=== PATIENT | male | born 1935 | race Caucasian/White ===

== ENCOUNTER 2018-07-13 04:50 | Inpatient (IN) | payer OTHER ==
[~2018-07-13] VITALS: Ht 200.7 cm; Wt 72.6 kg
[2018-07-13] MEDS ORDERED: DALIRESP500 MCG (05:02)
[2018-07-13] MEDS ORDERED: BENICAR5 MG (05:02)
[2018-07-13] MEDS ORDERED: STIOLTO RESPIMAT4 GM (05:02)
[2018-07-13] MEDS ORDERED: FLOVENT HFA10.6 GM (05:03)
[2018-07-13] MEDS ORDERED: CARDIZEM30 MG (05:03)
[2018-07-13] MEDS ORDERED: MONTELUKAST SODI1 GM (05:04)
[2018-07-13] MEDS ORDERED: RANITIDINE HCL25 GM (05:04)
[2018-07-13] MEDS ORDERED: XOPENEX0.63 MG/3 (05:05)
[2018-07-13] MEDS ORDERED: ASPIR-LOW81 MG (05:05)
== END 2018-07-22 19:13 | disposition home or self-care (01) | DRG 193 ==
LOC: ER 04:50 → ICU-2 15:19 → MEDJ 07-15 09:52
PROVIDERS: ADMIT Internal Medicine
PROC: BW24ZZZ Computerized Tomography (CT Scan) of Chest and Abdomen (ICD-10-PCS; principal; 2018-07-13)
PROC: B246ZZZ Ultrasonography of Right and Left Heart (ICD-10-PCS; 2018-07-13)
PROC: 3E0F7GC Introduction of Other Therapeutic Substance into Respiratory Tract, Via Natural or Artificial Opening (ICD-10-PCS; 2018-07-13)
PROC: 4A033R1 Measurement of Arterial Saturation, Peripheral, Percutaneous Approach (ICD-10-PCS; 2018-07-13)
DX: J10.08 Influenza due to other identified influenza virus with other specified pneumonia (principal); J80 Acute respiratory distress syndrome; A41.9 Sepsis, unspecified organism; B37.89 Other sites of candidiasis; J15.7 Pneumonia due to Mycoplasma pneumoniae; J44.1 Chronic obstructive pulmonary disease with (acute) exacerbation; B95.61 Methicillin susceptible Staphylococcus aureus infection as the cause of diseases classified elsewhere; I49.8 Other specified cardiac arrhythmias; I10 Essential (primary) hypertension; R00.0 Tachycardia, unspecified; E86.0 Dehydration; I95.89 Other hypotension; Z87.891 Personal history of nicotine dependence; Z99.81 Dependence on supplemental oxygen